=== PATIENT | female | born 1945 | race Asian ===

== ENCOUNTER → 2017-03-18 | Day surgery (SDC) | payer MEDICARE, OTHER ==
[~2017-03-18] VITALS: Ht 162.6 cm; Wt 67.1 kg
[2017-03-18 07:29] VITALS: BP 140/69
[2017-03-18 11:21] VITALS: BP 120/66
== END | disposition home or self-care (01) ==
LOC: DS 06:49 → GI 10:30 → OR 10:30
PROVIDERS: Internal Medicine
PROC: 0DBF8ZZ Excision of Right Large Intestine, Via Natural or Artificial Opening Endoscopic (ICD-10-PCS; principal; 2017-03-18 10:30)
DX: Z12.11 Encounter for screening for malignant neoplasm of colon (principal); K57.30 Diverticulosis of large intestine without perforation or abscess without bleeding; D12.2 Benign neoplasm of ascending colon; K59.00 Constipation, unspecified; E11.9 Type 2 diabetes mellitus without complications; Z68.28 Body mass index [BMI] 28.0-28.9, adult
CPT/HCPCS: 45378; J1200; J1610; J2250; J2310; J3010; J3490

== ENCOUNTER 2017-07-11 14:15 | Inpatient (IN) | payer OTHER, MEDICARE ==
[~2017-07-11] VITALS: Ht 152.4 cm; Wt 70.0 kg
--- NOTE | 2017-07-11 14:45 | NUR ---
TO LOBBY, NO DISTRESS NOTED, FAMILY AT BEDSIDE
--- NOTE | 2017-07-11 15:24 | NUR ---
TO BED 3 VIA WHEELCHAIR. BROUGHT IN BY SON, PER SON PT WOKE UP THIS MORNING WITH EPISODES OF CONFUSION. PER SON SIMILAR EPISODE 6 MONTHS AGO, "HER AMONIA LEVEL WAS HIGH". PT SPEAKS VINCENTIAN ONLY, SON STATES SPEECH IS CLEAR AND PT FOLLOWING HIS COMMANDS. DENIES CP, NO SOB. SINUS TACH ON AUDIT CONSULTANT.
--- NOTE | 2017-07-11 15:29 | NUR ---
ATTEMPTED TO DO MED REC, UNRECALLED MEDS PER SON,.
--- NOTE | 2017-07-11 16:00 | NUR ---
NS BOLUS INFUSING AT THIS TIME.
[2017-07-11 16:02] LABS: BASOPHIL % 0.1 % (0-2)
[2017-07-11 16:08] LABS: CALCIUM 8.9 mg/dL (8.5-10.1); CARBON DIOXIDE 20.3 mmol/L (21-32); CHLORIDE SERUM 105 mmol/L (98-107); CREATININE SERUM 1.3 mg/dL (0.6-1.0); GLUCOSE SERUM 197 mg/dL (74-106); POTASSIUM SERUM 4.2 mmol/L (3.5-5.1); SODIUM SERUM 137 mmol/L (136-145)
[2017-07-11 16:12] LABS: PLATELET COUNT 70 x10^3mcL (130-400); RED CELL DISTRIBUTION WIDTH 20.1 % (11.5-14.5)
[2017-07-11 16:14] LABS: ALBUMIN 3.4 g/dL (3.4-5.0); ALKALINE PHOSPHATASE 204 U/L (46-116); ALT/SGPT 32 U/L (14-59); AST/SGOT 44 U/L (15-37); BILIRUBIN TOTAL 1.2 mg/dL (0.20-1.00); LIPASE 233 IU/L (73-393)
[2017-07-11 16:17] LABS: TOTAL PROTEIN, SERUM 8.7 g/dL (6.4-8.2)
[2017-07-11 16:43] LABS: ovalocyte/elliptocyte 1+; rbc morphology (normal/abnorm) ABNORMAL (NORMAL); tear drop cell (dacryocyte) 1+
--- NOTE | 2017-07-11 17:11 | NUR ---
LACTULOSE PO ADMIN ORDERED. PT AWAKE, NO CP, NO SOB, NO VOMITING. SPOUSE AT BEDSIDE.
--- NOTE | 2017-07-11 17:17 | NUR ---
PT ADMITTED TO TELE, REPORT GIVEN TO JARAD.
--- NOTE | 2017-07-11 17:50 | NUR ---
RECEIVED PT FROM ER VIA [facility] TO 218A. TRANSFER TO BED WITH 4 NURSE ASSIST. MADE COMFORTABLE. TURN REPOSITION TO RIGHT SIDE. HOB ELEVATED. FALL AND ASPIRATION PRECAUTIONS. SPEAKS POLISH. AT BEDSIDE TO ASSIST WITH HISTORY INTAKE. HE REPORTS "SHE DOES WHAT I TELL HER TO DO, BUT SHE IS CONFUSED. HER AMMONIA LEVEL IS HIGH." IV PATENT LAC INFUSING NORMAL SALINE 110CC/HR. TELE #15 SINUS TACH RATE 107. DENIES PAIN. ABD SOFT, BOWEL TONES PRESENT. NO EDEMA. PULSES PRESENT. SIDE RAILS UP X2. CALL LIGHT IN REACH. WILL CONTINUE TO MONITOR.
[2017-07-11 18:03] VITALS: BP 125/52
--- NOTE | 2017-07-11 18:12 | NUR ---
RECEIVED PATIENT FROM ED VIA [facility], PATIENT ALERT AND ORIENTED, TELE # 15 SR, IV ACCESS TO LAC WNL, NO C/O PAIN AT THIS TIME, SPOUSE AT BEDSIDE, ORIENTED PATIENT TO ROOM AND SURROUNDINGS, BED IN LOW POSITION, BED RAILS UP X 2, CALL LIGHT WITHIN REACH, WILL ENDORSE CARE TO PRIMARY NURSE JARAD BURROWS
--- NOTE | 2017-07-11 18:42 | NUR ---
AT BEDSIDE FOR EVALUATION. SCD APPLIED. IV ZOSYN STARTED. ABLE TO SWALLOW NEOMYCIN ORDERED. WILL CONTINUE TO MONITOR.
[2017-07-11 18:53] LABS: AMYLASE 110 U/L (25-115); MAGNESIUM 2.1 mg/dL (1.8-2.4); PHOSPHOROUS 2.8 mg/dL (2.5-4.9)
[2017-07-11 19:04] LABS: FREE T4 1.39 ng/dL (0.76-1.46); FREE THYROXINE INDEX 2.6 ug/dL (1.4-4.5); T4(THYROXINE) 7.4 ug/dL (4.7-13.3)
[2017-07-11] MEDS ORDERED: INVOKANA300 MG PO (19:34)
[2017-07-11] MEDS ORDERED: LOSARTAN POTASS50 M1 PO (19:34)
[2017-07-11] MEDS ORDERED: GLUCOTROL10 MG PO (19:35)
[2017-07-11] MEDS ORDERED: DEXILANT60 M1 PO (19:35)
--- NOTE | 2017-07-11 19:47 | NUR ---
RECEIVED PATIENT IN BED AWAKE, ALERT AND ABLE TO FOLLOW COMMANDS THIS TIME. ON O2 AT 2L VIA NC BREATHING EASY AND NONLABOR SATTING AT 98%. AT BEDSIDE. TELE# 15 NSR ON MONITOR. SCD TO BLE IN PLACE. IV TO LAC INTACT AND INFUSING WELL. WILL CONTINUE TO MONITOR. CALL LIGHT WITHIN REACH.
[2017-07-11 19:58] LABS: T3 TOTAL 0.84 ng/mL
--- NOTE | 2017-07-11 19:58 | NUR ---
ASSISTED TO BATHROOM AND VOIDED, SPECIMEN COLLECTED FOR UA, UDS AND URC. WILL CONTINUE TO MONITOR.
[2017-07-11 20:37] VITALS: BP 125/52
[2017-07-11 20:37] LABS: microscopic required? YES; urine erythrocyte NEGATIVE (NEGATIVE)
[2017-07-11 21:21] LABS: AMPHETAMINE QUAL UR NONE DETECTED (NEG <=1000)
--- NOTE | 2017-07-11 22:20 | NUR ---
IV TO LAC LEAKING, REINSERTED NEW IV TO LEFT HAND INTACT AND INFUSING WELL.
[2017-07-11 22:58] VITALS: BP 130/74
--- NOTE | 2017-07-12 04:59 | NUR ---
HAD BM X3 LOOSE IN BIG AMOUNT AFTER PATIENT TOOK LACTULOSE. CHECKED AT INTERVALS FOR NEEDS AND SAFETY.
[2017-07-12 05:20] VITALS: BP 114/63
--- NOTE | 2017-07-12 07:40 | NUR ---
RECEIVED PATIENT SITTING UP IN BED A/O TO NAME, AND CITY, REORIENTED TO TIME/PLACE. TELE # [address], DENIES CHEST PAIN. BREATHING EVEN UNLABBORED ON RA, DENIES SOB, NO DISTRESS NOTED, HOB ELEVATED. PATIENT HAD BM THIS AM, LOOSE, ON LACTULOSE PO PER MD ORDER FOR ELEVATED AMMONIA LEVELS 61. SKIN IS WARM CDI WITH IV TO LH INTACT INFUSING NS AT 110 ML/HR FREE FROM REDNESS AND INFILTRATION. PATIENT IS CALM AND COOPERATIVE WITH CARE. INSTRUCTED TO CALL FOR ASSISTANCE IF NEEDED. CALL LIGHT WITHIN REACH, BED IN LOW POSITION. WILL CONTINUE TO MONITOR AND MAINTIAN SAFETY.
[2017-07-12 08:44] VITALS: BP 110/52
--- NOTE | 2017-07-12 09:30 | NUR ---
ROUNDS MADE- DR. KAUFFMAN, RESIDENT TEAM, CHARGE NURSE AND PRIMARY NURSE AT BEDSIDE. POC REVIEWED WITH PATIENT- PATIENT WILL STAY TODAY AND MD WILL SPEAK WITH FAMILY REGARDING POC. ALL QUESTIONS AND CONCERNS ADDRESSED. WILL MONITOR.
[2017-07-12 09:47] LABS: CALCIUM 8.6 mg/dL (8.5-10.1); CARBON DIOXIDE 16.6 mmol/L (21-32); CHLORIDE SERUM 110 mmol/L (98-107); CREATININE SERUM 1.6 mg/dL (0.6-1.0); GLUCOSE SERUM 193 mg/dL (74-106); HDL CHOLESTEROL 57 mg/dL (40-60); MAGNESIUM 2.2 mg/dL (1.8-2.4); PHOSPHOROUS 3.8 mg/dL (2.5-4.9); POTASSIUM SERUM 4.7 mmol/L (3.5-5.1); SODIUM SERUM 138 mmol/L (136-145); TRIGLYCERIDES 108 mg/dL (<150)
[2017-07-12 09:51] LABS: CHOLESTEROL 129 mg/dL (<200); CHOLESTEROL/HDL RATIO 2.3
[2017-07-12 11:30] LABS: RED CELL DISTRIBUTION WIDTH 19.7 % (11.5-14.5)
--- NOTE | 2017-07-12 11:30 | NUR ---
ULTRASOUND AT BEDSIDE.
[2017-07-12 11:31] LABS: BASOPHIL % 0.2 % (0-2)
[2017-07-12 11:33] LABS: PLATELET COUNT 55 x10^3mcL (130-400)
[2017-07-12 15:02] VITALS: BP 114/46
--- NOTE | 2017-07-12 15:45 | NUR ---
DR. CHAUDHARI (DO-RESIDENT) AT BEDSIDE TO SPEAK WITH AND ASSESS PATIENT. PATIENTS ALSO AT BEDSIDE. ALL QUESTIONS AND CONCERNS ADDRESSED. SAFETY PRECAUTIONS MAINTAINED. WILL MONITOR.
[2017-07-12 18:15] VITALS: BP 113/53
--- NOTE | 2017-07-12 19:15 | NUR ---
REPORT GIVEN TO HARRY RN, ALL QUESTIONS AND CONCERNS ADDRESSED. ALL CARES ENDORSED.
--- NOTE | 2017-07-12 19:26 | NUR ---
SHIFT REASSESSMENT DONE.PATIENT ALERT AND ORIENTED X 2.NEEDS ANTICIPATED.BREATHING EASY,RESTING.GEN WEAKNESS.UP WITH PT,CANE AT BEDSIDE.NS AT 110 CC/ HOUR.IV SITE GOOD.TELE 15 SR.SKIN INTACT.AMMONIA L;EVEL IS HIGH ON ADMIT,LACTULOSE BEING GIVEN WITH GOOD RESULT.ASSIST BRP,FALL PRECAUTION.CALL LIGHT IN REACH.
--- NOTE | 2017-07-12 19:27 | NUR ---
PATIENT NOTED JUST QUIET BUT SHE IS ALERT AND ORIENTED NOW,PATIENT IS FROM [facility].ANSWERS QUESTIONS WELL.
[2017-07-12 21:05] VITALS: BP 115/49
--- NOTE | 2017-07-12 21:44 | NUR ---
NO RESP DISTRESS OR SOB SEEN WHEN OBSERVED PT AT 2044. PT HAD ALSO JUST COME FROM THE RESTROOM AND SAT 100 HR 70 B/S CLEAR.
--- NOTE | 2017-07-13 01:36 | NUR ---
ATB SCHEDULED.NO INCIDENT.UP RESTROOM,VOIDING AND HAVE BM FROM LACTULOSE.WATCH CLOSELY FOR SAFETY.
--- NOTE | 2017-07-13 03:25 | NUR ---
NEW IV BAG.PATIENT SLEEPING COMFORTABLY.
--- NOTE | 2017-07-13 06:11 | NUR ---
AM MEDS GIVEN.PATIENT SWALLOWS WELL.PATIENT BLOOD SUGAR 107.WILL ENDORSE TO NEXT SHIFT.CALL LIGHT IN REACH.WILL ENDORSE TO NEXT SHIFT.
--- NOTE | 2017-07-13 06:19 | NUR ---
PATIENT IS MORE ALERT AND ORIENTED NOW X4.
[2017-07-13 06:33] LABS: CALCIUM 8.2 mg/dL (8.5-10.1); CARBON DIOXIDE 17.5 mmol/L (21-32); CHLORIDE SERUM 112 mmol/L (98-107); CREATININE SERUM 1.6 mg/dL (0.6-1.0); GLUCOSE SERUM 96 mg/dL (74-106); POTASSIUM SERUM 4.5 mmol/L (3.5-5.1); SODIUM SERUM 140 mmol/L (136-145)
--- NOTE | 2017-07-13 07:00 | NUR ---
RECEIVED REPORT FROM JESSICA MCDONALD AT THIS TIME. PATIENT IS RESTING IN BED WITH EYES CLOSED. ON ROOM AIR, NO DISTRESS NOTED, I.S. AT THE BEDSIDE. CANE AT THE BEDSIDE. IV TO LEFT HAND INTACT. SCDS IN PLACE. CALL LIGHT WITH IN REACH.
[2017-07-13 07:32] LABS: BASOPHIL % 0.4 % (0-2)
[2017-07-13 07:34] LABS: PLATELET COUNT 55 x10^3mcL (130-400); RED CELL DISTRIBUTION WIDTH 19.7 % (11.5-14.5)
--- NOTE | 2017-07-13 08:25 | NUR ---
REPORTED WBC 3.1, HG 7.2, HCT [address] BRUNO AT THIS TIME ACCORDING TO SEPSIS PROTOCOL.
--- NOTE | 2017-07-13 08:31 | NUR ---
ROUNDS MADE AT THIS TIME. DR. HAIR, RESIDENT TEAM, ENDYE RN AND PRIMARY RN AT THE [facility]. PLAN OF CARE IS DISCUSSED.
[2017-07-13 09:33] VITALS: BP 113/49
[2017-07-13 11:37] LABS: TOTAL IRON BINDING CAPACITY 259 ug/dL (250-450)
[2017-07-13 11:38] LABS: IRON 31 ug/dL (50-170)
[2017-07-13 11:58] LABS: RED BLOOD CELLS 2.44 M/mm3 (4.10-5.10)
--- NOTE | 2017-07-13 13:21 | NUR ---
IN TO SEE PATINET AND ADMINISTER DUE MEDICATION (SEE EMAR). PATIENT IS RESTING IN BED NO DISTRESS NOTED. DENIES ANY PAIN IS AT THE BEDSIDE. WILL CONTINUE TO MONITOR.
[2017-07-13 14:00] VITALS: BP 121/52
[2017-07-13 16:36] VITALS: BP 132/56; BP 169/74
--- NOTE | 2017-07-13 16:44 | NUR ---
PATIENT RESTING IN BED AWAK, ALERT AND O X4. NO DISTRESS NOTED. SON IS AT THE BEDSIDE. CALL LIGHT WITH IN REACH.
--- NOTE | 2017-07-13 17:02 | NUR ---
Initial Nutrition Assessment- Dx: ALOC (hepatic encephalopathy) PMHx: DM, HTN PSHx:None Labs: (07/13) B, BUN:20H, Cr:1.6H, Ca:8.2L, [id number], H/H:7.2/22L(07/11) T bili:1.2H, AST:44H, A1c:8.6H Meds: Antivert, Cephulac, Colace, Ferrous sulfate, Glucotrol, Humulin, Invokana, NS IV, Theragran, Vitamin C, Zofran Diet:[facility] PO Intake: (07/12) B:90%, D:95% Ht: 60in, 5ft Wt: 154#,70kg BMI:30.1kg/m2 (obeisty class I) IBW: 100#,45kg %IBW:154 % adjusted bw: 114#,52kg UBW: 148-150# per pt Age:72 y/o female Food Allergies:NKFA Skin: intact with dark discoloration to BLE Silviano:21 Edema:None GI:active bowel sounds Last BM:07/12 loose due to pt on lactulose Pt admitted with Hepatic encephalopathy, ammonia 174,SIRS of unknown source lactic acid 2.4, Hyperbilirubinemia 1.2, DMOOC HbA1C 8.6 w HCS and atherosclerotic PAD, per H&P. Per progress note 07/13, pt is in mild distress. Pt denies headahces, dyspnea, nausea, vomiting, abdominal pain and dysuria. Observed pt laying in bed with no family at bedside. Pt with no c/o N/V/C but c/o diarrhea. Pt is on lactulose with loose stools. Spoke to Dr. Rodriguez about 40g protein restriction due to pt with elevated ammonia levels, doctor input orders. Problem with: N: No V: No D: Loose stools on lactulose C:No Problems with: Chewing:No Swallowing: No Current appetite: Good Recent wt change:+4# %wt change:-2.6% Vitamin/Supplement use:Pt does not know Special diet at home:Regular Physical activity: none. Uses cane to ambulate Education: pt declined nutrition education at this time. Pt seemed confused throughout interview. Will provide diet education at next follow up. Estimated Nutritional Needs Based on adjusted body weight 52 kg Energy:1533-0582 kcal/d (25-30kcal/kg for geriatric maintenance) Protein: 31-42g/d (0.6-0.8g/kg for elevated ammonia levels) when ammonia WNL=52g/day Fluid: 1300-1560ml/d (1 ml/kcal) or per doctor Nutrition Diagnosis 1. Altered nutrition labs related to hepatic encephalopathy as evidenced by elevated ammonia:47 2. Altered nutrition labs related to endocrine dysfunction as evidenced by elevated A1c:8.6 Intervention 1. Recommend add 40g protein restriction to current CCHO diet due to pt with elevated ammonia levels. 2. When ammonia levels WNL, recommend continue with CCHO diet. Monitor/Evaluate Goal: PO intake at least 75% of estimated needs Monitor: PO intake, Labs, GI function F/U in 3-5 days as moderate risk:07/15-
--- NOTE | 2017-07-13 17:53 | NUR ---
PATIENT SITTING AT THE BEDSIDE EATING DINNER. TOLERATING DIET WELL.
--- NOTE | 2017-07-13 20:00 | NUR ---
PATIENT RECEIVED IN BED AWAKE,ALERT AND ORIENTED X3, FORGETFUL, KITTITIAN SPEAKING ABLE TO COMMUNICATE LITTLE SYRIAC,SPEECH CLEAR. BREATHING EVEN AND UNLABORED,FOUND ON ROOM AIR SAT 100%. TELE#15 NSR, HR=84BPM. IV SITE NO SIGN OF INFILTRATION. APPLIED SCD'S TO BLE FOR DVT PROPHYLAXIS. PATIENT WITH GENERALIZED WEAKNESS, NEEDS ANTICIPATED, SAFETY/FALL PREC. MAINTAINED. NO S/S OF PAIN THIS TIME. WILL CONTINUE TO MONITOR.
[2017-07-13 20:02] VITALS: BP 140/51
[2017-07-13 21:06] VITALS: BP 144/61
[2017-07-13 21:07] VITALS: BP 144/61
--- NOTE | 2017-07-13 21:30 | NUR ---
SCHEDULED MED ADMINISTERED, INFORMED ABOUT ACTION AND PURPOSE PRIOR. NO DIFF SWALLOWING. NO COMPLAINTS MADE. WILL CONTINUE TO MONITOR.
--- NOTE | 2017-07-14 | NUR ---
ROUNDS MADE PATIENT WITH EYES CLOSED, COMFORTABLE TIN BED, AWAKEN WHEN NAME CALLED. NSR ON THE MONITOR. IV SITE NO SIGN OF INFILTRATION. PATIENT ORIENTED X3, NO CONFUSION BUT FORGETFUL, SPEECH CLEASR, ABLE TO COMMNUICATEIN LITTLE CYMRAES. SAFETYN MAINTAINED .WILL CONTINUE TO MONITOR.
--- NOTE | 2017-07-14 06:34 | NUR ---
PATIENT HAD A RESTFUL AND QUIET NIGHT, NO COMPLAINT MADE DURING THE SHIFT. WAS ASSISTED OOB TO THE BR WITH STEADY GAIT BY APPEALS BOARD REFEREE. IV SITE NO SIGN OF INFILTRATION.BS THIS AM WA 71, PATIENT AAOX3 ABLE TO ANSWER SIMPLE QUESTION 1 GLASS OF OJ GIVEN, RECHECKED WA 103. SAFETY/FALL PRECAUTIONS OBSERVED AND MAINTAINED. WILL ENDORSE CONTINUITY OF CARE TO INCOMING NURSE.
[2017-07-14 06:37] VITALS: BP 111/57
--- NOTE | 2017-07-14 07:10 | NUR ---
PT SEEN REST ON BED, EASILY AROUSABLE WITH VERBAL RESPONSE. PT BREATHING ON RA, EVEN, UNLABORED. IV SITE PATENT, INTACT. IVF INFUSING WELL.
[2017-07-14 08:00] VITALS: BP 113/56
[2017-07-14 08:06] LABS: CALCIUM 7.9 mg/dL (8.5-10.1); CARBON DIOXIDE 18.9 mmol/L (21-32); CHLORIDE SERUM 113 mmol/L (98-107); CREATININE SERUM 1.3 mg/dL (0.6-1.0); GLUCOSE SERUM 76 mg/dL (74-106); MAGNESIUM 1.7 mg/dL (1.8-2.4); PHOSPHOROUS 2.6 mg/dL (2.5-4.9); POTASSIUM SERUM 4.6 mmol/L (3.5-5.1); SODIUM SERUM 138 mmol/L (136-145)
[2017-07-14 09:22] LABS: MONOCYTE 6 % (0-7); SEGMENTED NEUTROPHILS 58 % (37-75)
[2017-07-14 09:23] LABS: rbc morphology (normal/abnorm) ABNORMAL (NORMAL)
[2017-07-14 09:35] LABS: PLATELET COUNT 49 x10^3mcL (130-400)
[2017-07-14] MEDS ORDERED: NEO500 PO (10:35)
[2017-07-14] MEDS ORDERED: LEVAQUIN750 MG PO (10:40)
[2017-07-14] MEDS ORDERED: LAC PO (10:41)
[2017-07-14] MEDS ORDERED: LAC30L PO (10:55)
[2017-07-14 11:16] VITALS: BP 113/56
[2017-07-14 14:20] LABS: PLATELET COUNT 56 x10^3mcL (130-400); RED CELL DISTRIBUTION WIDTH 20.2 % (11.5-14.5)
[2017-07-14 14:37] LABS: MONOCYTE 16 % (0-7); SEGMENTED NEUTROPHILS 64 % (37-75)
[2017-07-14 14:38] LABS: BAND NEUTROPHIL 4 % (0-10)
--- NOTE | 2017-07-14 14:53 | NUR ---
CALLED TO (RESIDENT) ASSIGNED TO THIS PT MADE AWARE THAT FROM H/H-6.01/17 AND REPEAT H/H-7.03/22 IS A LOT BETTER , SAID PT IS CLEARED FOR DISCHARGE HOME TODAY. KALA RN ASSIGNED TO THIS PT MADE AWARE OF ABOVE.
[2017-07-14 15:00] LABS: PLATELET MORPHOLOGY PLATELETS DECREASED; rbc morphology (normal/abnorm) ABNORMAL (NORMAL); target cell (codocyte) 2+
--- NOTE | 2017-07-14 15:37 | NUR ---
PHYSICAL THERAPY DAILY NOTES CO-SIGN All documentation done by the Facilities Operator for 07/14/17 has been reviewed. I agree with the documentation. I CONCUR W/TELEPHONE OPERATOR RECEPTIONIST NOTE; CONT PER TX PLAN Reviewed/Co-Signed by: Silvana Ballesteros V PT Documentation Done by: MANDIE ALAS PTA
--- NOTE | 2017-07-14 15:38 | NUR ---
PT IS READY TO BE DISCHARGED. CALLED PT'S HU AND MADE THEN AWARE PT IS READY TO PUBLIC HEALTH ADMINISTRATOR. DISCHARGE INSTRUCTION GIVEN TO PT. PT IS A/O X 3. PT BREATHING ON RA, EVEN, UNLABORED. IV IS REMOVED.
== END 2017-07-14 16:14 | disposition home or self-care (01) | DRG 720 ==
LOC: ED 14:15 → DU 16:50
PROVIDERS: Emergency Medicine; Family Medicine; ADMIT Student in an Organized Health Care Education/Training Program
DX: A41.9 Sepsis, unspecified organism (principal); N17.0 Acute kidney failure with tubular necrosis; D61.811 Other drug-induced pancytopenia; D68.69 Other thrombophilia; E11.51 Type 2 diabetes mellitus with diabetic peripheral angiopathy without gangrene; E11.65 Type 2 diabetes mellitus with hyperglycemia; K72.90 Hepatic failure, unspecified without coma; N39.0 Urinary tract infection, site not specified; D64.9 Anemia, unspecified; E80.6 Other disorders of bilirubin metabolism; Z68.30 Body mass index [BMI] 30.0-30.9, adult; Z79.84 Long term (current) use of oral hypoglycemic drugs; T36.0X5A Adverse effect of penicillins, initial encounter; Y92.230 Patient room in hospital as the place of occurrence of the external cause; I10 Essential (primary) hypertension; K21.9 Gastro-esophageal reflux disease without esophagitis; E66.9 Obesity, unspecified
CPT/HCPCS: 82962; 83880; 84439; 94150; 97110-GP; 97116-GP; 97530-GP; G0480; J0696; J2543; J2916; J3490; J7030; J7620; Q0092

== ENCOUNTER 2017-09-19 00:18 | Emergency (ER) | payer MEDICARE, OTHER ==
[~2017-09-19] VITALS: Ht 160 cm; Wt 70.3 kg
[~2017-09-19 00:18] MED LIST: DEXILANT60 M1 PO; GLUCOTROL10 MG PO; INVOKANA300 MG PO; LAC PO; LAC30L PO; LEVAQUIN750 MG PO; LOSARTAN POTASS50 M1 PO; NEO500 PO
[2017-09-19 00:27] VITALS: Ht 160 cm; Wt 70.3 kg
[2017-09-19 01:21] LABS: BASOPHIL % 0.5 % (0-2)
[2017-09-19 01:24] LABS: CALCIUM 8.4 mg/dL (8.5-10.1); CHLORIDE SERUM 106 mmol/L (98-107); CREATININE SERUM 1.3 mg/dL (0.6-1.0); GLUCOSE SERUM 111 mg/dL (74-106); PLATELET COUNT 57 x10^3mcL (130-400); POTASSIUM SERUM 4.6 mmol/L (3.5-5.1); RED CELL DISTRIBUTION WIDTH 20.8 % (11.5-14.5); SODIUM SERUM 136 mmol/L (136-145)
[2017-09-19 01:33] LABS: ALKALINE PHOSPHATASE 154 U/L (46-116); ALT/SGPT 24 U/L (14-59); AST/SGOT 47 U/L (15-37); BILIRUBIN TOTAL 0.63 mg/dL (0.20-1.00); TOTAL PROTEIN, SERUM 7.5 g/dL (6.4-8.2)
[2017-09-19 01:34] LABS: ALBUMIN 2.9 g/dL (3.4-5.0); CHOLESTEROL 112 mg/dL (<200)
[2017-09-19 03:19] VITALS: BP 119/76
== END 2017-09-19 03:20 | disposition home or self-care (01) ==
LOC: ED 00:18
PROVIDERS: Specialist
DX: E11.649 Type 2 diabetes mellitus with hypoglycemia without coma (principal); I10 Essential (primary) hypertension
CPT/HCPCS: 36415; 82962; Q0092

== ENCOUNTER 2017-10-21 06:49 | Day surgery (SDC) | payer MEDICARE, OTHER ==
[~2017-10-21] VITALS: Ht 157.5 cm; Wt 71.7 kg
[2017-10-21 07:04] VITALS: BP 149/57
[2017-10-21 09:58] VITALS: BP 101/58
== END 2017-10-21 09:55 | disposition home or self-care (01) ==
LOC: DS 06:49 → OR 07:30 → GI 08:00 → OR 08:00 → DS 09:55 → OR 10:30
PROVIDERS: Internal Medicine
PROC: 0DB68ZX Excision of Stomach, Via Natural or Artificial Opening Endoscopic, Diagnostic (ICD-10-PCS; principal; 2017-10-21 08:00)
PROC: 0D5M8ZZ Destruction of Descending Colon, Via Natural or Artificial Opening Endoscopic (ICD-10-PCS; 2017-10-21 08:00)
DX: Q27.33 Arteriovenous malformation of digestive system vessel (principal); K20.8 Other esophagitis; K29.50 Unspecified chronic gastritis without bleeding; K44.9 Diaphragmatic hernia without obstruction or gangrene; K74.69 Other cirrhosis of liver; K75.81 Nonalcoholic steatohepatitis (NASH); D50.9 Iron deficiency anemia, unspecified; E11.9 Type 2 diabetes mellitus without complications; Z68.33 Body mass index [BMI] 33.0-33.9, adult; I10 Essential (primary) hypertension; D64.9 Anemia, unspecified; Z12.11 Encounter for screening for malignant neoplasm of colon
CPT/HCPCS: 43235; 45378; J1200; J1610; J2250; J2310; J3010; J3490

== ENCOUNTER 2018-09-20 09:34 | Inpatient (IN) | payer OTHER, MEDICARE ==
[~2018-09-20] VITALS: Ht 152.4 cm; Wt 71.0 kg
[2018-09-20 09:36] VITALS: Ht 152.4 cm; Wt 71.0 kg
[2018-09-20 10:57] LABS: CALCIUM 8.5 mg/dL (8.5-10.1); CARBON DIOXIDE 23.7 mmol/L (21-32); CHLORIDE SERUM 106 mmol/L (98-107); CREATININE SERUM 1.4 mg/dL (0.6-1.0); GLUCOSE SERUM 271 mg/dL (74-106); POTASSIUM SERUM 4.6 mmol/L (3.5-5.1); SODIUM SERUM 137 mmol/L (136-145)
[2018-09-20 11:00] LABS: BASOPHIL % 0.1 % (0-2)
[2018-09-20 11:01] LABS: ALKALINE PHOSPHATASE 207 U/L (46-116); ALT/SGPT 38 U/L (14-59); AST/SGOT 39 U/L (15-37); MAGNESIUM 2.1 mg/dL (1.8-2.4); TOTAL PROTEIN, SERUM 7.5 g/dL (6.4-8.2)
[2018-09-20 11:09] LABS: ALBUMIN 2.5 g/dL (3.4-5.0)
[2018-09-20 11:14] LABS: PLATELET COUNT 73 x10^3mcL (130-400); RED CELL DISTRIBUTION WIDTH 17.8 % (11.5-14.5)
[2018-09-20 13:45] VITALS: BP 142/49
[2018-09-20 16:03] VITALS: BP 136/56
[2018-09-20 17:15] VITALS: BP 123/39
[2018-09-20 20:11] VITALS: BP 104/61
[2018-09-20 21:06] LABS: microscopic required? NO
[2018-09-20 21:21] LABS: urine erythrocyte NEGATIVE (NEGATIVE)
[2018-09-21 05:52] VITALS: BP 126/46
[2018-09-21 06:36] LABS: CALCIUM 8.1 mg/dL (8.5-10.1); CARBON DIOXIDE 21.4 mmol/L (21-32); CHLORIDE SERUM 109 mmol/L (98-107); CREATININE SERUM 1.2 mg/dL (0.6-1.0); GLUCOSE SERUM 99 mg/dL (74-106); POTASSIUM SERUM 4.6 mmol/L (3.5-5.1); SODIUM SERUM 139 mmol/L (136-145)
[2018-09-21 06:49] LABS: BASOPHIL % 0.2 % (0-2); PLATELET COUNT 74 x10^3mcL (130-400); RED CELL DISTRIBUTION WIDTH 17.4 % (11.5-14.5)
[2018-09-21 10:00] VITALS: BP 120/56
[2018-09-21 13:47] VITALS: BP 122/54
[2018-09-21 17:56] VITALS: BP 122/39
[2018-09-21 21:18] VITALS: BP 99/50
[2018-09-22] VITALS (7 sets, daily range): BP systolic 96–129; BP diastolic 48–60
[2018-09-22 06:17] LABS: BASOPHIL % 0.3 % (0-2)
[2018-09-22 06:29] LABS: PLATELET COUNT 64 x10^3mcL (130-400); RED CELL DISTRIBUTION WIDTH 17.1 % (11.5-14.5)
[2018-09-22 06:38] LABS: ALKALINE PHOSPHATASE 160 U/L (46-116); ALT/SGPT 31 U/L (14-59); AST/SGOT 33 U/L (15-37); BILIRUBIN TOTAL 2.2 mg/dL (0.20-1.00); CALCIUM 8.2 mg/dL (8.5-10.1); CARBON DIOXIDE 19.9 mmol/L (21-32); CHLORIDE SERUM 107 mmol/L (98-107); CREATININE SERUM 1.3 mg/dL (0.6-1.0); GLUCOSE SERUM 101 mg/dL (74-106); POTASSIUM SERUM 4.6 mmol/L (3.5-5.1); SODIUM SERUM 136 mmol/L (136-145); TOTAL PROTEIN, SERUM 6.3 g/dL (6.4-8.2)
[2018-09-22 06:47] LABS: ALBUMIN 2.1 g/dL (3.4-5.0)
[2018-09-23 06:02] VITALS: BP 107/62
[2018-09-23 09:31] VITALS: BP 86/47
[2018-09-23 11:10] VITALS: BP 95/55
[2018-09-23 13:18] VITALS: BP 130/55
[2018-09-23 17:29] VITALS: BP 114/74
[2018-09-23 22:00] VITALS: BP 95/46
[2018-09-24 00:24] VITALS: BP 112/59
[2018-09-24 06:00] VITALS: BP 127/62
[2018-09-24 06:32] LABS: CARBON DIOXIDE 18.4 mmol/L (21-32); CHLORIDE SERUM 103 mmol/L (98-107); CREATININE SERUM 1.6 mg/dL (0.6-1.0); GLUCOSE SERUM 234 mg/dL (74-106); POTASSIUM SERUM 5.2 mmol/L (3.5-5.1); SODIUM SERUM 129 mmol/L (136-145)
[2018-09-24 07:33] LABS: BASOPHIL % 0.2 % (0-2)
[2018-09-24 07:39] LABS: PLATELET COUNT 68 x10^3mcL (130-400); RED CELL DISTRIBUTION WIDTH 17.9 % (11.5-14.5)
[2018-09-24 08:21] VITALS: BP 129/62
[2018-09-24 12:14] VITALS: BP 96/51
[2018-09-24 16:34] VITALS: BP 107/50
[2018-09-24 21:10] VITALS: BP 100/52
[2018-09-25] VITALS (7 sets, daily range): BP systolic 103–146; BP diastolic 57–85
[2018-09-25 07:26] LABS: CALCIUM 8.6 mg/dL (8.5-10.1); CARBON DIOXIDE 18.1 mmol/L (21-32); CHLORIDE SERUM 106 mmol/L (98-107); CREATININE SERUM 1.9 mg/dL (0.6-1.0); GLUCOSE SERUM 238 mg/dL (74-106); POTASSIUM SERUM 5.4 mmol/L (3.5-5.1); SODIUM SERUM 134 mmol/L (136-145)
[2018-09-25 07:32] LABS: BASOPHIL % 0 % (0-2); PLATELET COUNT 92 x10^3mcL (130-400); RED CELL DISTRIBUTION WIDTH 18.7 % (11.5-14.5)
[2018-09-26 05:36] VITALS: BP 114/64
[2018-09-26 06:28] LABS: CALCIUM 8.9 mg/dL (8.5-10.1); CARBON DIOXIDE 16.8 mmol/L (21-32); CREATININE SERUM 2.1 mg/dL (0.6-1.0); GLUCOSE SERUM 225 mg/dL (74-106); SODIUM SERUM 133 mmol/L (136-145)
[2018-09-26 06:32] LABS: POTASSIUM SERUM 5.9 mmol/L (3.5-5.1)
[2018-09-26 06:46] LABS: CHLORIDE SERUM 105 mmol/L (98-107)
[2018-09-26 06:52] LABS: BASOPHIL % 0 % (0-2); PLATELET COUNT 80 x10^3mcL (130-400); RED CELL DISTRIBUTION WIDTH 17.2 % (11.5-14.5)
[2018-09-26 08:22] VITALS: BP 145/61
[2018-09-26 13:04] VITALS: BP 152/79
[2018-09-26 16:31] VITALS: BP 148/85
[2018-09-26 20:35] VITALS: BP 125/65
[2018-09-27 05:36] VITALS: BP 95/68
[2018-09-27 06:25] LABS: BASOPHIL % 0.1 % (0-2)
[2018-09-27 06:27] LABS: PLATELET COUNT 77 x10^3mcL (130-400); RED CELL DISTRIBUTION WIDTH 17.7 % (11.5-14.5)
[2018-09-27 06:47] LABS: CALCIUM 8.6 mg/dL (8.5-10.1); CHLORIDE SERUM 101 mmol/L (98-107); CREATININE SERUM 2.3 mg/dL (0.6-1.0); GLUCOSE SERUM 238 mg/dL (74-106); POTASSIUM SERUM 4.7 mmol/L (3.5-5.1); SODIUM SERUM 129 mmol/L (136-145)
[2018-09-27 09:01] VITALS: BP 135/66
[2018-09-27 17:07] VITALS: BP 116/65
[2018-09-27 21:31] VITALS: BP 128/62
[2018-09-28 05:50] VITALS: BP 139/73
[2018-09-28 06:53] LABS: BASOPHIL % 0 % (0-2); PLATELET COUNT 75 x10^3mcL (130-400); RED CELL DISTRIBUTION WIDTH 17.2 % (11.5-14.5)
[2018-09-28 07:05] LABS: CALCIUM 8.3 mg/dL (8.5-10.1); CARBON DIOXIDE 19.4 mmol/L (21-32); CHLORIDE SERUM 105 mmol/L (98-107); CREATININE SERUM 2.3 mg/dL (0.6-1.0); GLUCOSE SERUM 196 mg/dL (74-106); POTASSIUM SERUM 4.8 mmol/L (3.5-5.1); SODIUM SERUM 137 mmol/L (136-145)
[2018-09-28 09:27] VITALS: BP 133/76
[2018-09-28 12:36] VITALS: BP 135/64
[2018-09-28 16:14] LABS: microscopic required? YES; urine erythrocyte 3+ (NEGATIVE)
[2018-09-28 16:53] VITALS: BP 115/52
[2018-09-28 22:27] VITALS: BP 115/7
[2018-09-29 04:57] VITALS: BP 146/76
[2018-09-29 10:30] VITALS: BP 147/80
[2018-09-29 13:02] VITALS: BP 144/86
[2018-09-29 16:57] VITALS: BP 112/66
[2018-09-29 20:35] VITALS: BP 109/69
[2018-09-30 04:55] VITALS: BP 140/86
[2018-09-30 06:41] LABS: CALCIUM 8.5 mg/dL (8.5-10.1); CARBON DIOXIDE 26.5 mmol/L (21-32); CHLORIDE SERUM 104 mmol/L (98-107); CREATININE SERUM 2.4 mg/dL (0.6-1.0); GLUCOSE SERUM 211 mg/dL (74-106); POTASSIUM SERUM 4.9 mmol/L (3.5-5.1); SODIUM SERUM 139 mmol/L (136-145)
[2018-09-30 07:15] LABS: BASOPHIL % 0 % (0-2); PLATELET COUNT 75 x10^3mcL (130-400); RED CELL DISTRIBUTION WIDTH 16.5 % (11.5-14.5)
[2018-09-30 08:43] VITALS: BP 156/74
[2018-09-30 12:05] VITALS: BP 126/83
[2018-09-30] MEDS ORDERED: SIMVASTATIN20 M1 PO (13:15)
[2018-09-30] MEDS ORDERED: LACTULOSE10 GM/152 PO (13:17)
[2018-09-30] MEDS ORDERED: INVOKANA300 MG PO (13:27)
[2018-09-30] MEDS ORDERED: DEXILANT60 M1 PO (13:27)
[2018-09-30] MEDS ORDERED: GLIPIZIDE10 M3 PO (13:28)
[2018-09-30] MEDS ORDERED: CELEBREX200 MG PO (13:29)
[2018-09-30 16:33] VITALS: BP 116/75
[2018-09-30 19:43] VITALS: BP 141/56
[2018-10-01 05:09] VITALS: BP 149/74
[2018-10-01 06:36] LABS: BASOPHIL % 0 % (0-2); PLATELET COUNT 92 x10^3mcL (130-400)
[2018-10-01 07:01] LABS: CALCIUM 8.8 mg/dL (8.5-10.1); CARBON DIOXIDE 23.4 mmol/L (21-32); CHLORIDE SERUM 101 mmol/L (98-107); CREATININE SERUM 2.7 mg/dL (0.6-1.0); GLUCOSE SERUM 268 mg/dL (74-106); POTASSIUM SERUM 5.5 mmol/L (3.5-5.1); SODIUM SERUM 135 mmol/L (136-145)
[2018-10-01 08:39] VITALS: BP 139/64
[2018-10-01 12:45] VITALS: BP 148/63
[2018-10-01 17:00] VITALS: BP 137/49
[2018-10-01 21:26] VITALS: BP 140/69
[2018-10-02] VITALS (7 sets, daily range): BP systolic 59–144; BP diastolic 28–68
[2018-10-02 07:00] LABS: PLATELET COUNT 81 x10^3mcL (130-400); RED CELL DISTRIBUTION WIDTH 18.5 % (11.5-14.5)
[2018-10-02 07:01] LABS: CALCIUM 8.7 mg/dL (8.5-10.1); CHLORIDE SERUM 100 mmol/L (98-107); GLUCOSE SERUM 301 mg/dL (74-106); SODIUM SERUM 137 mmol/L (136-145)
[2018-10-02 07:10] LABS: POTASSIUM SERUM 5.6 mmol/L (3.5-5.1)
[2018-10-02 07:40] LABS: MAGNESIUM 2.1 mg/dL (1.8-2.4); PHOSPHOROUS 6.3 mg/dL (2.5-4.9)
[2018-10-02 07:48] LABS: BAND NEUTROPHIL 2 % (0-10); METAMYELOCTE 1 % (0-2); MONOCYTE 2 % (0-7); SEGMENTED NEUTROPHILS 92 % (37-75)
[2018-10-02 07:50] LABS: rbc morphology (normal/abnorm) ABNORMAL (NORMAL)
[2018-10-02 07:51] LABS: PLATELET MORPHOLOGY PLATELETS DECREASED; acanthocyte (spur cell) 3+
[2018-10-05 08:47] LABS: CK-BB 0 % (0); CK-MB 7 % (0-3); CK-MM 87 % (97-100); MACRO TYPE 1 6 % (Not Observed); MACRO TYPE 2 0 % (Not Observed)
== END 2018-10-02 23:15 | disposition expired | DRG 720 ==
LOC: ED 09:34 → DU 11:37 → IC 10-02 20:41 → DU 10-02 20:56 → IC 10-02 21:27
PROVIDERS: Emergency Medicine; General Practice; Internal Medicine Nephrology; ADMIT Internal Medicine
PROC: 5A12012 Performance of Cardiac Output, Single, Manual (ICD-10-PCS; principal; 2018-09-20)
DX: A41.9 Sepsis, unspecified organism (principal); N17.0 Acute kidney failure with tubular necrosis; J96.01 Acute respiratory failure with hypoxia; I46.9 Cardiac arrest, cause unspecified; R65.21 Severe sepsis with septic shock; D69.6 Thrombocytopenia, unspecified; E11.22 Type 2 diabetes mellitus with diabetic chronic kidney disease; N18.3 Chronic kidney disease, stage 3 (moderate); E11.65 Type 2 diabetes mellitus with hyperglycemia; D50.9 Iron deficiency anemia, unspecified; R21 Rash and other nonspecific skin eruption; E87.1 Hypo-osmolality and hyponatremia; K74.60 Unspecified cirrhosis of liver; E87.5 Hyperkalemia; L03.311 Cellulitis of abdominal wall; E78.00 Pure hypercholesterolemia, unspecified; I12.9 Hypertensive chronic kidney disease with stage 1 through stage 4 chronic kidney disease, or unspecified chronic kidney disease; M19.90 Unspecified osteoarthritis, unspecified site; Z68.30 Body mass index [BMI] 30.0-30.9, adult; Z79.84 Long term (current) use of oral hypoglycemic drugs; Z83.3 Family history of diabetes mellitus; Z82.49 Family history of ischemic heart disease and other diseases of the circulatory system
CPT/HCPCS: 36600; 82962; 97110-GP; 97116-GP; 97530-GP; A4628; C9113; J1200; J1450; J1815; J1940; J2405; J2543; J2920; J3370; J3490; J7030; J7512; J7620; Q0092; Q0163